=== PATIENT | female | born 1990 | race Caucasian/White ===

== ENCOUNTER 2017-03-06 01:31 | Emergency (ER) | payer MEDICAID ==
[~2017-03-06] VITALS: Ht 162.6 cm; Wt 60.0 kg
[~2017-03-06 01:31] MED LIST: DOCU-131 PO; FERR325T17 PO; IBUP-1223 PO; OXYC-302 PO
[2017-03-06] MEDS ORDERED: BUPR-173 PO (01:48)
[2017-03-06] MEDS ORDERED: DIPH,PERTUSS(ACELL),TET VAC/PF 0.5 ML IM-VACC ONE ×2 (02:00→02:03)
[2017-03-06] MEDS ORDERED: ACETAMINOPHEN 325 MG TABLET ONE (02:03)
[2017-03-06] MEDS ORDERED: LIDOCAINE 1%, 20ML ONE (02:18)
[2017-03-06] MEDS ORDERED: ACETAMINOPHEN 325 MG TABLET PO ONE (02:30)
[2017-03-06 02:51] LABS: HEMATOCRIT 38.2 % (34.6-47.8); HEMOGLOBIN 12.7 g/dL (11.7-16.4); WHITE BLOOD COUNT 12.4 x10^3/uL (3.4-10)
[2017-03-06 03:01] LABS: BLOOD UREA NITROGEN 5 mg/dL (7-18)
[2017-03-06 04:00] VITALS: BP 120/69
== END 2017-03-06 04:21 | disposition left against medical advice (07) ==
LOC: ED 03:05
DX: S02.2XXA Fracture of nasal bones, initial encounter for closed fracture (principal); S05.40XA Penetrating wound of orbit with or without foreign body, unspecified eye, initial encounter; F17.200 Nicotine dependence, unspecified, uncomplicated; R00.0 Tachycardia, unspecified; F15.10 Other stimulant abuse, uncomplicated; F32.9 Major depressive disorder, single episode, unspecified; Z98.890 Other specified postprocedural states; Y04.0XXA Assault by unarmed brawl or fight, initial encounter; Y93.9 Activity, unspecified; Y92.89 Other specified places as the place of occurrence of the external cause; Y99.8 Other external cause status; I10 Essential (primary) hypertension
CPT/HCPCS: 12013; 36415; 70450; 70486; 71020; 72125; 80048; 80307; 82040; 85025; 90471; 90715; 93005

== ENCOUNTER 2017-03-13 14:31 | Observation (INO) | payer MEDICAID ==
[~2017-03-13] VITALS: Ht 162.6 cm; Wt 55.0 kg
[~2017-03-13 14:31] MED LIST changes: +BUPR-173 PO
[2017-03-13] MEDS ORDERED: ZIPRASIDONE 20 MG INJ IM ONE ×2 (14:40→15:00)
[2017-03-13] MEDS ORDERED: SODIUM CHLORIDE 0.9% 1,000 ML IV ONE (15:07)
[2017-03-13] MEDS ORDERED: THIAMINE 100MG TABLET PO ONE (15:30)
[2017-03-13] MEDS ORDERED: SODIUM CHLORIDE 0.9% 1,000ML IVBOLUS ONE (15:30)
[2017-03-13 16:09] LABS: HEMATOCRIT 35.2 % (34.6-47.8); HEMOGLOBIN 11.6 g/dL (11.7-16.4); WHITE BLOOD COUNT 10.3 x10^3/uL (3.4-10)
[2017-03-13 16:11] LABS: BLOOD UREA NITROGEN 6 mg/dL (7-18)
[2017-03-13 16:21] LABS: HIV 1&2 ANTIBODY SCREEN Nonreactive (Nonreactive); HIV-1 p24 ANTIGEN Nonreactive (Nonreactive)
[2017-03-13 16:22] LABS: ACETAMINOPHEN < 2 mcg/mL (10-30)
[2017-03-13] MEDS ORDERED: THIAMINE 100MG TABLET ONE (16:38)
[2017-03-13] MEDS ORDERED: POTASSIUM CHLORIDE 10% 40 MEQ/30 ML UDC PO ONE (17:00)
[2017-03-13 18:08] LABS: DAU SCREEN DISCLAIMER
[2017-03-13] MEDS ORDERED: POTASSIUM CHLORIDE 20 MEQ TAB.ER.PRT PO ONE (22:30)
[2017-03-13] MEDS ORDERED: ACETAMINOPHEN 325 MG TABLET PO PRN (22:30)
[2017-03-13] MEDS ORDERED: LORazepam 1MG TABLET ONE (23:52)
[2017-03-13] MEDS ORDERED: POTASSIUM CHLORIDE 20 MEQ TAB.ER.PRT ONE (23:53)
[2017-03-13] MEDS: LORazepam 1MG TABLET PO PRN (23:53)
[2017-03-14] MEDS ORDERED: LORazepam 1MG TABLET ONE ×3 (05:41→19:37)
[2017-03-14] MEDS: LORazepam 1MG TABLET PO PRN ×3 (05:42→20:08)
[2017-03-14] MEDS ORDERED: POTASSIUM CHLORIDE 20 MEQ TAB.ER.PRT PO ONE (08:00)
[2017-03-14] MEDS ORDERED: POTASSIUM CHLORIDE 20 MEQ TAB.ER.PRT ONE (08:10)
[2017-03-14] MEDS: TRAZODONE 50MG TABLET PO PRN (18:51)
[2017-03-14] MEDS ORDERED: ACETAMINOPHEN 325 MG TABLET ONE (19:38)
[2017-03-14] MEDS: NYSTATIN 500,000 UNITS/5 ML UDC PO SCH (22:46)
[2017-03-14 23:48] VITALS: BP 98/60
[2017-03-15] MEDS: NYSTATIN 500,000 UNITS/5 ML UDC PO SCH ×4 (06:24→20:30)
[2017-03-15 06:26] LABS: BLOOD UREA NITROGEN 11 mg/dL (7-18)
[2017-03-15 07:56] VITALS: BP 108/71
[2017-03-15] MEDS: LORazepam 1MG TABLET PO PRN ×2 (12:24→17:34)
[2017-03-15] MEDS: TRAZODONE 50MG TABLET PO PRN (20:33)
[2017-03-16] MEDS: NYSTATIN 500,000 UNITS/5 ML UDC PO SCH ×3 (06:24→16:00)
[2017-03-16] MEDS: LORazepam 1MG TABLET PO PRN (11:11)
[2017-03-16 16:02] VITALS: BP 98/64
[2017-03-16] MEDS ORDERED: AMOX1TAB61 PO (16:41)
== END 2017-03-16 16:15 ==
LOC: ED 16:59 → EDIP 21:23 → INTOOBSV 21:23 → 3E 03-14 23:44
PROVIDERS: ADMIT Hospitalist; ATTEND Hospitalist
DX: R45.851 Suicidal ideations (principal); E87.6 Hypokalemia; F19.10 Other psychoactive substance abuse, uncomplicated; F20.9 Schizophrenia, unspecified; F31.9 Bipolar disorder, unspecified; Z87.891 Personal history of nicotine dependence; F41.9 Anxiety disorder, unspecified; J45.909 Unspecified asthma, uncomplicated; D72.829 Elevated white blood cell count, unspecified
CPT/HCPCS: 36415; 80048; 80307; 80329; 82040; 84703; 85025; 86703; 87081; 87102; 87147; 87880; 87899; 93005; 96360; 96372; 99285; G0378; J3486; J7030; G0435; G0479; G0480

== ENCOUNTER 2017-04-21 15:23 | Emergency (ER) | payer MEDICAID ==
[~2017-04-21] VITALS: Ht 160 cm; Wt 56.9 kg
[~2017-04-21 15:23] MED LIST changes: +AMOX1TAB61 PO
[2017-04-21 16:24] LABS: HEMATOCRIT 40.6 % (34.6-47.8); HEMOGLOBIN 13.6 g/dL (11.7-16.4)
[2017-04-21 16:36] LABS: ASPARTATE AMINO TRANSFERASE 36 U/L (15-37); BLOOD UREA NITROGEN 6 mg/dL (7-18)
[2017-04-21 16:44] LABS: ACETAMINOPHEN < 2 mcg/mL (10-30)
[2017-04-21 17:08] LABS: DAU SCREEN DISCLAIMER
[2017-04-21 18:50] VITALS: BP 125/79
== END 2017-04-21 19:18 | disposition home or self-care (01) ==
LOC: ED 19:12
DX: F10.10 Alcohol abuse, uncomplicated (principal); F15.10 Other stimulant abuse, uncomplicated; F11.10 Opioid abuse, uncomplicated; N30.00 Acute cystitis without hematuria; J45.909 Unspecified asthma, uncomplicated; F32.9 Major depressive disorder, single episode, unspecified
CPT/HCPCS: 36415; 80053; 80307; 80329; 81001; 84703; 85025; 87086; 99284; G0479; G0480